=== PATIENT | male | born 2000 | race American Indian/Alaskan Native ===

== ENCOUNTER 2019-01-19 21:51 | Emergency (ER) | payer MEDICAID, OTHER ==
[2019-01-19 21:56] VITALS: BP 133/76; PULSE 72
--- NOTE | 2019-01-19 22:22 | EDM.PDOC ---
ED HPI GENERAL MEDICAL PROBLEM - General Chief Complaint: Lower Extremity Injury/Pain Stated Complaint: DISLOCATED LEFT KNEE Time Seen by Provider: 01/19/19 22:19 Source of Information: Reports: Patient History Limitations: Reports: No Limitations - History of Present Illness INITIAL COMMENTS - FREE TEXT/NARRATIVE: states left knee pops in-out regularly. last night it popped out and it went back in. still hurts a bit and can walk on it but wants to know if it's ok. Left Knee Pain Score (Numeric/FACES): 8 - Related Data Allergies Allergy/AdvReac Type Severity Reaction Status Date / Time No Known Allergies Allergy Verified 11/01/13 19:31 Home Meds: Home Meds . [No Known Home Meds] 02/14/13 [History] Past Medical History - Past Health History Medical/Surgical History: Denies Medical/Surgical History - Past Surgical History Musculoskeletal Surgical History: Reports: Other (See Below) Other Musculoskeletal Surgeries/Procedures:: ACL repair Social & Family History - Family History Family Medical History: Noncontributory - Tobacco Use Smoking Status *Q: Unknown Ever Smoked - Caffeine Use Caffeine Use: Reports: Soda - Recreational Drug Use Recreational Drug Use: No Review of Systems - Review of Systems Review Of Systems: Comprehensive ROS is negative, except as noted in HPI. ED EXAM, GENERAL - Physical Exam Exam: See Below Exam Limited By: No Limitations General Appearance: Alert, WD/WN, No Apparent Distress Ears: Hearing Grossly Normal Throat/Mouth: Normal Voice, No Airway Compromise Head: Atraumatic Neck: Non-Tender, Full Range of Motion Respiratory/Chest: No Respiratory Distress Cardiovascular: Regular Rate, Rhythm GI/Abdominal: Soft, Non-Tender Extremities: Other (left knee mild swelling, no gross D/D, NV wnl, able to flex & extend without problem, gait limited to discomfort) Neurological: Alert, Oriented, Normal Cognition, No Motor/Sensory Deficits Psychiatric: Normal Affect, Normal Mood Skin Exam: Warm, Dry, Normal Color Lymphatic: No Adenopathy Course - Vital Signs Last Recorded V/S: Last Vital Signs Temp 36.6 C 01/19/19 21:53 Pulse 72 01/19/19 21:53 Resp 18 01/19/19 21:53 BP 133/76 01/19/19 21:53 Pulse Ox 99 01/19/19 21:53 - Orders/Labs/Meds Orders: Active Orders 24 hr Category Date Time Status Knee 3V Lt [CR] Urgent Exams 01/19/19 22:17 Taken - Re-Assessments/Exams Free Text/Narrative Re-Assessment/Exam: 01/19/19 22:50 results discussed with pt Departure - Departure Time of Disposition: 22:51 Disposition: Home, Self-Care 01 Condition: Good Clinical Impression: Knee effusion, left - Discharge Information Instructions: Knee Effusion, [id number] Forms: ED Department Discharge Additional Instructions: 1) wear brace 2) elevate knee as much as possible next 48 hours 3) follow up at clinic Sepsis Event Note - Evaluation Sepsis Screening Result: No Definite Risk - Focused Exam Vital Signs: Vital Signs Temp Pulse Resp BP Pulse Ox 01/19/19 21:53 36.6 C 72 18 133/76 99 Date Exam was Performed: 01/19/19 Time Exam was Performed: 22:50 - My Orders Last 24 Hours: My Active Orders 01/19/19 22:17 Knee 3V Lt [CR] Urgent - Assessment/Plan Last 24 Hours: My Active Orders 01/19/19 22:17 Knee 3V Lt [CR] Urgent
== END 2019-01-19 22:55 | disposition home or self-care (01) ==
LOC: DL.ED 21:51
DX: M25.462 Effusion, left knee (principal)
CPT/HCPCS: 73562-LT; 99283-25

== ENCOUNTER 2020-02-27 13:39 | Emergency (ER) | payer BC, OTHER ==
[2020-02-27 13:54] VITALS: BP 150/53; PULSE 84
[2020-02-27] MEDS ORDERED: Rabies Immune Globulin/PF 300 UNIT/ML 5 ML SDV IM ONE (14:45)
[2020-02-27] MEDS ORDERED: Rabies Immune Globulin/PF 300 UNIT/ML 1 ML SDV IM ONE (14:45)
[2020-02-27] MEDS ORDERED: Rabies Vaccine (Avian) 2.5 Unit Inj Kit IM ONE (14:51)
--- NOTE | 2020-02-27 14:57 | EDM.PDOC ---
<Omar Yu Marychuy - Last Filed: 02/27/20 15:18> ED HPI GENERAL MEDICAL PROBLEM - General Chief Complaint: Bite:Animal, Insect Stated Complaint: DOG BITE Time Seen by Provider: 02/27/20 14:53 Source of Information: Reports: Patient History Limitations: Reports: No Limitations - History of Present Illness INITIAL COMMENTS - FREE TEXT/NARRATIVE: 20 y/o M c/o dog bite to R lower leg. 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 The dog ran off and was not found again. Unknown if dog is vaccinated. Pt denies loc, loss of sensation, other injury, drugs, etoh. Onset: Today Duration: Hour(s): Location: Reports: Lower Extremity, Right Severity: Mild Improves with: Reports: None Worsens with: Reports: None Associated Symptoms: Reports: No Other Symptoms Right Leg Pain Score (Numeric/FACES): 3 - Related Data Allergies Allergy/AdvReac Type Severity Reaction Status Date / Time No Known Allergies Allergy Verified 02/27/20 13:54 Home Meds: Home Meds . [No Known Home Meds] 02/14/13 [History] Past Medical History - Past Health History Medical/Surgical History: Denies Medical/Surgical History HEENT History: Reports: None Cardiovascular History: Reports: None Respiratory History: Reports: None Gastrointestinal History: Reports: None Genitourinary History: Reports: None Neurological History: Reports: None Psychiatric History: Reports: None Endocrine/Metabolic History: Reports: None Hematologic History: Reports: None Immunologic History: Reports: None Oncologic (Cancer) History: Reports: None Dermatologic History: Reports: None - Infectious Disease History Infectious Disease History: Reports: None - Past Surgical History Head Surgeries/Procedures: Reports: None Musculoskeletal Surgical History: Reports: Other (See Below) Other Musculoskeletal Surgeries/Procedures:: ACL repair Social & Family History - Family History Family Medical History: No Pertinent Family History - Tobacco Use Tobacco Use Status *Q: Never Tobacco User Second Hand Smoke Exposure: No - Caffeine Use Caffeine Use: Reports: Soda - Recreational Drug Use Recreational Drug Use: No ED ROS GENERAL - Review of Systems Review Of Systems: Comprehensive ROS is negative, except as noted in HPI. ED EXAM, ANIMAL BITE - Physical Exam Exam: See Below Exam Limited By: No Limitations General Appearance: Alert, WD/WN, No Apparent Distress Head: Atraumatic, Normocephalic Neck: Normal Inspection, Supple, Non-Tender, Full Range of Motion Respiratory/Chest: No Respiratory Distress, Lungs Clear, Normal Breath Sounds, No Accessory Muscle Use, Chest Non-Tender Cardiovascular: Normal Peripheral Pulses, Regular Rate, Rhythm, No Edema, No Gallop, No JVD, No Murmur, No Rub Back Exam: Normal Inspection, Full Range of Motion, NT Extremities: Normal Inspection, Normal Range of Motion, Non-Tender, No Pedal Edema, Normal Capillary Refill, Other (except for smal 1 cm abrasion to R lateral lower calf from dog bite.) Neurological: Alert, Oriented, CN II-XII Intact, Normal Cognition, Normal Gait, Normal Reflexes, No Motor/Sensory Deficits Psychiatric: Normal Affect, Normal Mood Skin Exam: Warm/Dry, DRY, I, Normal Color, NR Departure - Departure Time of Disposition: 15:18 Disposition: Home, Self-Care 01 Condition: Good Clinical Impression: Dog bite Qualifiers: Encounter type: initial encounter Qualified Code(s): W54.0XXA - Bitten by dog, initial encounter - Discharge Information *PRESCRIPTION DRUG MONITORING PROGRAM REVIEWED*: Not Applicable *COPY OF PRESCRIPTION DRUG MONITORING REPORT IN PATIENT CA: Not Applicable Instructions: Animal Bite, Adult, [id number] Forms: ED Department Discharge Additional Instructions: The first dose of the rabies vaccine and a dose of Rabies Immunoglobin were given today. The next dose will be the then the and then the fifth of March. Return to the emergency department at [facility] in [place] for the rest of your vaccinations. If any other symptoms or concerns develop return to the ER or follow up with your primary care provider. Sepsis Event Note (ED) - Evaluation Sepsis Screening Result: No Definite Risk <Horacio Mackenzie - Last Filed: 02/27/20 15:29> Course - Vital Signs Last Recorded V/S: Last Vital Signs Temp 37.1 C 02/27/20 13:48 Pulse 84 02/27/20 13:48 Resp 16 02/27/20 13:48 BP 150/53 H 02/27/20 13:48 Pulse Ox 96 02/27/20 13:48 - Orders/Labs/Meds Orders: Active Orders 24 hr Category Date Time Status Vaccines to be Administered [RC] PER UNIT ROUTINE Care 02/27/20 14:51 Active Meds: Medications Discontinued Medications Generic Name Dose Route Start Last Admin Trade Name Sharon PRN Reason Stop Dose Admin Rabies Immune Globulin 1,500 unit 02/27/20 14:45 02/27/20 15:23 Hyperrab 300 Unit/Ml Vial IM 02/27/20 14:46 1,500 unit ONETIME ONE Administration Rabies Immune Globulin 250 unit 02/27/20 14:45 02/27/20 15:25 Hyperrab 300 Unit/Ml Vial IM 02/27/20 14:46 250 unit ONETIME ONE Administration Rabies Vaccine 2.5 unit 02/27/20 14:51 02/27/20 15:17 Rabavert IM 02/27/20 14:52 2.5 unit .ONCE ONE Administration - Re-Assessments/Exams Free Text/Narrative Re-Assessment/Exam: 02/27/20 15:28 I have examined the patient. I have discussed findings and treatment plan with the PA student. I agree with the assessment and plan in the following students note Sepsis Event Note (ED) - Focused Exam Vital Signs: Vital Signs Temp Pulse Resp BP Pulse Ox 02/27/20 13:48 37.1 C 84 16 150/53 H 96
== END 2020-02-27 15:58 | disposition home or self-care (01) ==
LOC: DL.ED 13:39
DX: S81.851A Open bite, right lower leg, initial encounter (principal); Z23 Encounter for immunization; W54.0XXA Bitten by dog, initial encounter
CPT/HCPCS: 90375; 90471; 90675; 96372; 99283

== ENCOUNTER 2023-08-11 22:05 | Emergency (ER) | payer BC, OTHER ==
[2023-08-11 22:44] LABS: BASOPHILS PERCENT AUTO 0.4 % (0.0-1.0); EOSINOPHILS PERCENT AUTO 0.1 % (1.0-3.0); HEMATOCRIT 41.1 % (40.0-54.0); HEMOGLOBIN 14.6 g/dL (14.0-18.0); LYMPHOCYTES PERCENT AUTO 12.3 % (20.5-50.1); MEAN CORPUSCULAR HEMOGLOBIN 29.8 pg (27.0-34.0); MEAN CORPUSCULAR HGB CONC 35.5 g/dL (33.0-35.0); MEAN CORPUSCULAR VOLUME 83.9 fL (80-100); MONOCYTES PERCENT AUTO 6.4 % (2-8); NEUTROPHILS PERCENT AUTO 80.8 % (42.2-75.2); PLATELET COUNT,PLT 276 10^3/uL (150-450); WHITE BLOOD CELL COUNT,WBC 10.5 10^3/uL (5.0-10.0)
[2023-08-11] MEDS: Ondansetron 4 MG/2 ML SDV ONE (22:46)
[2023-08-11] MEDS: fentaNYL 100 MCG/2 ML SDV IVPUSH ONE ×2 (22:50→23:15)
[2023-08-11 23:06] LABS: A/G RATIO 1.4; ALANINE AMINOTRANSFERASE,ALT 40 U/L (16-63); ALBUMIN 4.2 g/dL (3.4-5.0); ALKALINE PHOSPHATASE 93 U/L (46-116); ANION GAP 15.1 mEq/L (7-13); ASPARTATE AMNIOTRANSFERASE,AST 27 U/L (15-37); BILIRUBIN TOTAL 0.6 mg/dL (0.2-1.0); BLOOD UREA NITROGEN,BUN 11 mg/dL (7-18); BUN/CREATININE RATIO 8.9 (No establ ref range); CALCIUM 9.3 mg/dL (8.5-10.1); CARBON DIOXIDE,CO2 25 mmol/L (21-32); CHLORIDE,CL 101 mmol/L (98-107); CREATININE 1.24 mg/dL (0.70-1.30); GLUCOSE RANDOM 104 mg/dL (70-99); POTASSIUM,K 3.1 mmol/L (3.5-5.1); PROTEIN TOTAL,TP 7.1 g/dL (6.4-8.2); SODIUM,NA 138 mmol/L (136-145)
[2023-08-11] MEDS: Sodium Chloride 0.9% 10 ML Syringe FLUSH PRN (23:08)
[2023-08-11] MEDS ORDERED: Naloxone 2 MG/2 ML Syringe IVPUSH PRN (23:10)
[2023-08-11 23:11] LABS: ESTIMATED GFR 83 mL/min (>=60); ETHANOL BLOOD MEDICAL < 3 mg/dL (0)
[2023-08-11] MEDS ORDERED: predniSONE 20 MG Tab PO ONE (23:14)
[2023-08-11] MEDS: Lactated Ringers 1,000 ML IV ONE (23:25)
[2023-08-12] MEDS: Ondansetron 4 MG/2 ML SDV IVPUSH ONE (00:11)
[2023-08-12 00:18] VITALS: BP 149/93; PULSE 78
[2023-08-12 00:32] LABS: APPEARANCE,URINE CLEAR (CLEAR); BILIRUBIN,URINE NEGATIVE (NEGATIVE); COLOR,URINE YELLOW (YELLOW); GLUCOSE,URINE NEGATIVE (NEGATIVE); KETONES,URINE NEGATIVE (NEGATIVE); LEUKOCYTE ESTERASE,URINE NEGATIVE (NEGATIVE); NITRITE,URINE NEGATIVE (NEGATIVE); OCCULT BLOOD,URINE NEGATIVE (NEGATIVE); PROTEIN,URINE NEGATIVE (NEGATIVE); UROBILINOGEN,URINE 0.2 mg/dL (0.2-1.0)
[2023-08-12 00:34] LABS: AMPHETAMINES,URINE NEGATIVE (NEGATIVE); BARBITURATES,URINE NEGATIVE (NEGATIVE); BENZODIAZEPINE,URINE NEGATIVE (NEGATIVE); MDMA (ECSTASY), URINE NEGATIVE (NEGATIVE); METHADONE,URINE NEGATIVE (NEGATIVE); METHAMPHETAMINES,URINE NEGATIVE (NEGATIVE); OPIATES,URINE NEGATIVE (NEGATIVE); OXYCODONE,URINE NEGATIVE (NEGATIVE); PHENCYCLIDINE,URINE NEGATIVE (NEGATIVE); TCA,URINE NEGATIVE (NEGATIVE)
[2023-08-12] MEDS: Prochlorperazine 25 MG Supp RECTAL ONE (00:45)
[2023-08-12] MEDS: fentaNYL 100 MCG/2 ML SDV IVPUSH ONE (00:46)
== END 2023-08-12 01:09 ==
LOC: DL.ED 22:05
DX: S02.85XA Fracture of orbit, unspecified, initial encounter for closed fracture (principal); S02.2XXA Fracture of nasal bones, initial encounter for closed fracture; S02.401A Maxillary fracture, unspecified side, initial encounter for closed fracture; W21.03XA Struck by baseball, initial encounter
CPT/HCPCS: 36415; 70450; 70486; 80053; 80305; 80307; 81003; 85025; 93005; 96374; 96375; 96376; 99285; A9270; J2405; J3010; J7120; 93010; J3490

== ENCOUNTER 2024-12-12 03:12 | Emergency (ER) | payer SELFPAY ==
[2024-12-12 03:29] VITALS: BP 138/95; PULSE 90
[2024-12-12 03:53] LABS: BASOPHILS PERCENT AUTO 1.4 % (0.0-1.0); EOSINOPHILS PERCENT AUTO 1.9 % (1.0-3.0); LYMPHOCYTES PERCENT AUTO 30.6 % (20.5-50.1); MONOCYTES PERCENT AUTO 10.4 % (2-8); NEUTROPHILS PERCENT AUTO 55.7 % (42.2-75.2); PLATELET COUNT,PLT 253 10^3/uL (150-450); RED BLOOD CELL COUNT 4.61 10^6/uL (4.6-6.2); WHITE BLOOD CELL COUNT,WBC 5.7 10^3/uL (5.0-10.0)
[2024-12-12 04:23] LABS: A/G RATIO 1.6; ALANINE AMINOTRANSFERASE,ALT 42.0 U/L (16-63); ASPARTATE AMNIOTRANSFERASE,AST 30.0 U/L (15-37); BILIRUBIN TOTAL 0.3 mg/dL (0.2-1.0); BLOOD UREA NITROGEN,BUN 8.0 mg/dL (7-18); CARBON DIOXIDE,CO2 25.0 mmol/L (21-32); CHLORIDE,CL 108.0 mmol/L (98-107); CREATININE 0.93 mg/dL (0.70-1.30); EST CRCL DRUG DOSING (CG) 129.32 mL/min; ETHANOL BLOOD MEDICAL 261.0 mg/dL (0); GLUCOSE RANDOM 107.0 mg/dL (70-99); POTASSIUM,K 3.5 mmol/L (3.5-5.1); PROTEIN TOTAL,TP 7.3 g/dL (6.4-8.2); SODIUM,NA 146.0 mmol/L (136-145)
[2024-12-12 04:24] LABS: ESTIMATED GFR 117.0 mL/min (>=60)
[2024-12-12 04:29] LABS: APPEARANCE,URINE CLEAR (CLEAR); GLUCOSE,URINE NEGATIVE (NEGATIVE); OCCULT BLOOD,URINE NEGATIVE (NEGATIVE)
[2024-12-12 04:34] LABS: AMPHETAMINES,URINE NEGATIVE (NEGATIVE); BARBITURATES,URINE NEGATIVE (NEGATIVE); MDMA (ECSTASY), URINE NEGATIVE (NEGATIVE); METHAMPHETAMINES,URINE NEGATIVE (NEGATIVE); OPIATES,URINE NEGATIVE (NEGATIVE); OXYCODONE,URINE NEGATIVE (NEGATIVE); PHENCYCLIDINE,URINE NEGATIVE (NEGATIVE); TCA,URINE NEGATIVE (NEGATIVE)
== END 2024-12-12 04:55 ==
LOC: DL.ED 03:12
DX: F10.129 Alcohol abuse with intoxication, unspecified (principal); F17.200 Nicotine dependence, unspecified, uncomplicated; Y90.8 Blood alcohol level of 240 mg/100 ml or more
CPT/HCPCS: 36415; 80053; 80143; 80179; 80305-QW; 80307; 81003; 83735; 85025; 99285

== ENCOUNTER 2024-12-13 09:05 | Emergency (ER) | payer SELFPAY ==
[2024-12-13 09:25] VITALS: BP 144/76; PULSE 98
== END 2024-12-13 09:26 ==
LOC: DL.ED 09:05
DX: F10.129 Alcohol abuse with intoxication, unspecified (principal); Y90.9 Presence of alcohol in blood, level not specified
CPT/HCPCS: 99284